=== PATIENT | female | born 1940 | race Caucasian/White ===

== ENCOUNTER 2020-11-23 11:43 | Emergency (ER) | payer MEDICARE, BC ==
[~2020-11-23] VITALS: Ht 162.6 cm; Wt 63.5 kg
[2020-11-23] MEDS ORDERED: CHILDREN'S ASPI81 M1 PO (11:46)
[2020-11-23] MEDS ORDERED: NORVASC10 MG PO (11:46)
[2020-11-23] MEDS ORDERED: LIPITOR 20 MG T20 M1 PO (11:47)
[2020-11-23] MEDS ORDERED: LEVO-T100 MCG PO (11:47)
[2020-11-23] MEDS ORDERED: DIVALPROEX SOD125 M1 PO (11:47)
[2020-11-23] MEDS ORDERED: KLOR-CON 10 ER10 MEQ PO (11:48)
[2020-11-23] MEDS ORDERED: ZOLOFT 50 MG TA50 MG PO (11:48)
[2020-11-23] MEDS ORDERED: ACETAMINOPHEN325 M1 PO (11:48)
[2020-11-23] MEDS ORDERED: MILK OF MA400 MG/5 M PO (11:49)
[2020-11-23] MEDS ORDERED: ALPRAZOLAM 0.0.25 M1 PO (11:49)
[2020-11-23] MEDS ORDERED: ONDANSETRON HCL4 M2 PO (11:50)
[2020-11-23 12:14] LABS: ABSOLUTE EOSINOPHILS 0.1 thou/uL (0.0-0.7); ABSOLUTE LYMPHOCYTES 0.9 thou/uL (0.8-5.3); ABSOLUTE MONOCYTES 0.5 thou/uL (0.0-1.2); ABSOLUTE NEUTROPHILS 5.3 thou/uL (1.6-8.1); BASOPHILS 0.6 %; EOSINOPHILS 1.3 %; HEMATOCRIT 39.2 % (37.0-47.0); HEMOGLOBIN 13.4 gm/dL (12.0-15.0); MCH 30.5 pg (26.0-34.0); MCHC 34.2 g/dL (28.0-37.0); MCV 89.3 fL (80.0-100.0); MONOCYTES 6.7 %; MPV 8.7 fl. (7.2-11.1); NUCLEATED RBCS 0 /100WBC; PLATELET COUNT* 127 thou/uL (150-400); POLYS 78.4 %; RBC 4.39 mil/uL (4.20-5.00); RDW-CV 15.4 % (10.5-14.5); WBC 6.8 thou/uL (4.0-11.0)
[2020-11-23 12:32] LABS: CALCIUM 8.6 mg/dL (8.5-10.1); CREATININE 0.8 mg/dL (0.6-1.3); POTASSIUM 3.5 mmol/L (3.5-5.1)
[2020-11-23 12:37] LABS: ALBUMIN 3.7 g/dL (3.4-5.0); TOTAL BILIRUBIN 0.6 mg/dL (<0.1-1.0); TOTAL PROTEIN 6.7 g/dL (6.4-8.2)
[2020-11-23 13:42] LABS: URINE BILIRUBIN NEGATIVE (Negative); URINE BLOOD TRACE (Negative); URINE CLARITY CLEAR; URINE COLOR YELLOW; URINE GLUCOSE-RANDOM NEGATIVE (Negative); URINE KETONES NEGATIVE (Negative); URINE LEUKOCYTES-REFLEX NEGATIVE (Negative); URINE NITRITE-REFLEX NEGATIVE (Negative); URINE PROTEIN NEGATIVE (Negative); URINE UROBILINOGEN 0.2 E.U./dl (0.2-1.0)
--- NOTE | 2020-11-23 14:33 | EKG ---
[place] [address] ELECTROCARDIOGRAM REPORT Name: GOKUL LYON Room: [facility]#: [id number] Admission: 11/23/20 Attend Phys: Discharge: Date of : 38 Date of Service: 11/23/20 1215 Report #: [id number] THIS REPORT FOR: //name// [facility] ED Test Date: 2020-11-23 Test Time: 12:15:09 Pat Name: GOKUL LYON Department: Room: Gender: Instrumentation Instructor: : [id number] Requested By: Catracho Rivera Order Number: [id number] MD: Jaguar Hawkins Measurements Intervals [place] Rate: 80 P: 23 MD: 170 QRS: 1 QRSD: 95 T: 97 QT: 409 QTc: 472 Interpretive Statements Sinus rhythm Ventricular premature complex Borderline repolarization abnormality Baseline wander in lead(s) V3 No previous ECG available for comparison Electronically Signed On 11-23-2020 14:32:50 CDT by Jaguar Hawkins [email or web address] <ELECTRONICALLY SIGNED> By: Jaguar Hawkins MD, [facility] 11/23/20 1432 1215 121 Jaguar Hawkins MD, [facility] /EPI
[2020-11-23 15:40] VITALS: BP 118/66
== END 2020-11-23 15:41 | disposition home or self-care (01) ==
LOC: M.ERS 11:43
PROVIDERS: Physician Assistant
DX: S09.8XXA Other specified injuries of head, initial encounter (principal); E86.0 Dehydration; I10 Essential (primary) hypertension; E03.9 Hypothyroidism, unspecified; E78.5 Hyperlipidemia, unspecified; Z86.73 Personal history of transient ischemic attack (TIA), and cerebral infarction without residual deficits; W18.39XA Other fall on same level, initial encounter; Y93.89 Activity, other specified; Y92.89 Other specified places as the place of occurrence of the external cause; Y99.8 Other external cause status